=== PATIENT | female | born 1965 | race Caucasian/White ===

== ENCOUNTER → 2025-01-06 | Day surgery (SDC) | payer OTHER ==
[~2025-01-06] MED LIST: ACETAMINOPHEN 1000 MG/100 ML IV PRN; AMLODIPINE BESYL5 MG PO; ASPIRIN 325 MG TAB PO SCH; ASPIRIN81 MG PO; CEFAZOLIN SODIUM 0 GM ONE; CEFAZOLIN SODIUM 2 GM ONE; CELECOXIB 100 MG CAP PO SCH; CLINDAMYCIN PHOS 900 MG/50 ML IV ONE; CYCLOBENZAPRINE10 MG PO; DEXAMETHASONE SOD PHOS INJ 4 MG/ML SDV ONE; DIPHENHYDRAMINE HCL INJ 50 MG/ML VIAL IV PRN; DIPHENHYDRAMINE HCL INJ 50 MG/ML VIAL ONE; DOCUSATE SODIUM 100 MG CAP PO PRN; EPHEDRINE SULFATE INJ 50 MG/ML VIAL ONE; FENTANYL CITRATE/PF 100MCG/2 ML INJ ONE; GABAPENTIN300 MG PO; HYDROCODONE/APAP 5MG-325MG TAB PO PRN; HYDROCODONE/APAP 7.5MG-325MG 1 EA TAB ONE; HYDROCODONE/APAP 7.5MG-325MG 1 EA TAB PO PRN; HYDROMORPHONE 2MG/ML ONE; LIDOCAINE HCL 2% LOCAL INJ 5 ML SDV VIAL INJ ONE; MIDAZOLAM HCL 2 MG/2 ML VIAL ONE; ONDANSETRON HCL INJ 2MG/ML 2ML 2 MG/ML VIAL IV PRN; ONDANSETRON HCL INJ 2MG/ML 2ML 2 MG/ML VIAL ONE; PROPOFOL IV EMULSION 10 MG/ML 20 ML VIAL ONE; ROCURONIUM BROMIDE 1 ML IV ONE; ROPIVACAINE/EPI/CLONIDINE/KET 50 ML SYRINGE INJ ONE; SODIUM CHLORIDE 0.9% 1000ML 1,000 ML IV SCH; SUGAMMADEX SODIUM 200 MG/2 ML VIAL IV ONE
[2025-01-06] MEDS: GABAPENTIN 300 MG CAP ONE (06:04)
[2025-01-06] MEDS: DEXAMETHASONE SOD PHOS 10 MG/1 ML VIAL ONE (06:04)
[2025-01-06] MEDS: LACTATED RINGER'S 1,000 ML ONE (06:04)
[2025-01-06] MEDS: CELECOXIB 200 MG CAP ONE (06:04)
[2025-01-06 10:52] VITALS: TEMP 97.6
[2025-01-06] MEDS: FENTANYL CITRATE/PF 100MCG/2 ML INJ ONE (11:02)
[2025-01-06] MEDS: MEPERIDINE HCL INJ 25 MG/ML VIAL ONE (11:10)
[2025-01-06] MEDS: HYDROCODONE/APAP 7.5MG-325MG 1 EA TAB PO ONE (11:58)
[2025-01-06 15:30] VITALS: BP 134/79; PULSE 79; RESP 16; O2SAT 97
== END | disposition home health service (06) ==
LOC: OR 05:34
PROVIDERS: ATTEND Specialist
DX: M16.11 Unilateral primary osteoarthritis, right hip (principal); I10 Essential (primary) hypertension; Z88.0 Allergy status to penicillin; Z01.810 Encounter for preprocedural cardiovascular examination; Z01.812 Encounter for preprocedural laboratory examination; Z79.82 Long term (current) use of aspirin; Z79.899 Other long term (current) drug therapy; Z87.891 Personal history of nicotine dependence
CPT/HCPCS: 72170; 86850; 86900; 93005; C1713; C1776; J1100; J1171; J1200; J2003; J2175; J2250; J2405